=== PATIENT | male | born 1990 | race Caucasian/White ===

== ENCOUNTER 2018-11-18 19:38 | Emergency (ER) | payer SELFPAY ==
[2018-11-18 20:03] VITALS: BP 156/97
--- NOTE | 2018-11-18 20:06 | Emergency Department Report ---
Blank Doc - Documentation Documentation: This is a 27-year-old male that presents with depression. Patient stated feels like he is not himself. Father is present. Denies any SI/HI. Stated feels like his hopeless. Patient is a poor historian during interview and exam. This initial assessment diagnostic orders/clinical plan/treatment(s) is/are subject to change based on patient's health status, clinical progression and re- assessment by fellow clinical providers in the ED. Further treatment and workup at subsequent clinical providers discretion. Patient/guardians urged not to elope from ED s their condition may be serious if not clinically assessed and managed. Initial orders include: 1-Patient sent to Main for further evaluation and treatment 2-Labs 3- UA
--- NOTE | 2018-11-18 20:49 | Emergency Department Report ---
HPI - General Chief Complaint: Psych Time Seen by Provider: 11/18/18 19:55 - HPI HPI: 27-year-old male presents to the emergency department, his father at bedside, with the need for a medical and psychiatric evaluation. Over the past 3 days the patient has not been eating much, drinking much, or doing anything other than hanging out in his room. The patient is not in school and does not currently have a job. He also has not been talking much and family says that this is all abnormal for him. He has no past medical or psychiatric history. He denies any suicidal or homicidal ideations or any hallucinations. He says that he is just not been hungry. He says that he occasionally will drink some water. Throughout the day he will play a little bit of video games but otherwise he says that he is just doing "whatever." ED Past Medical Hx - Past Medical History Previous Medical History?: No - Surgical History Past Surgical History?: No - Social History Smoking Status: Never Smoker Substance Use Type: None ED Review of Systems ROS: Stated complaint: CHECK UP Other details as noted in HPI Comment: All other systems reviewed and negative Constitutional: denies: chills, fever Eyes: denies: eye pain, vision change ENT: denies: ear pain, throat pain Respiratory: denies: cough, shortness of breath Cardiovascular: denies: chest pain, palpitations Gastrointestinal: denies: abdominal pain, vomiting Genitourinary: denies: dysuria, discharge Musculoskeletal: denies: back pain, arthralgia Skin: denies: rash, lesions Neurological: denies: headache, weakness Psychiatric: depression. denies: auditory hallucinations, visual karis lucinations, homicidal thoughts, suicidal thoughts Physical Exam - Physical Exam Vital Signs: Vital Signs 11/18/18 19:57 Temperature 98.1 F Pulse Rate 107 H Respiratory 20 Rate Blood Pressure 156/97 O2 Sat by Pulse 98 Oximetry Physical Exam: GENERAL: The patient is well-developed well-nourished. HEENT: Normocephalic. Atraumatic. Patient has moist mucous membranes. EYES: Extraocular motions are intact. Pupils are equal and reactive to light bilaterally. NECK: Supple. Trachea is midline. CHEST/LUNGS: Clear to auscultation. There is no respiratory distress noted. HEART/CARDIOVASCULAR: Regular. There is no tachycardia. There is no obvious murmur. ABDOMEN: Abdomen is soft, nontender. Patient has normal bowel sounds. Obese habitus. SKIN: Skin is warm and dry. NEURO: The patient is awake, alert, and oriented. The patient is cooperative. The patient has no focal neurologic deficits. The patient has normal speech. MUSCULOSKELETAL: There is no tenderness or deformity. There is no limitation range of motion. There is no evidence of acute injury. PSYCH: Patient has a flat affect. ED Course Vital Signs 11/18/18 19:57 Temperature 98.1 F Pulse Rate 107 H Respiratory 20 Rate Blood Pressure 156/97 O2 Sat by Pulse 98 Oximetry ED Medical Decision Making - Lab Data Result diagrams: 11/18/18 20:17 11/18/18 20:17 - Medical Decision Making Patient presents to the emergency department with a few days of decreased eating and drinking, and decreased talking and/or interaction with his family. The patient is awake, alert, oriented and able to have a conversation but only answers with a few words or short answers. Patient denies any suicidal or homicidal ideations or any hallucinations. He does not appear to be responding to any type of internal stimuli. Patient was seen by the psychiatric converter supervisor, Katherine, who agrees that the patient does not appear to meet criteria to be made a 1013 or to necessitate inpatient involuntary psychiatric treatment. Patient has been given outpatient referrals for psychiatric treatment and/or counseling. Patient's labs have been mostly unremarkable. Vital signs stable throughout his ED course. The patient and his father understand and agree to the plan. - Differential Diagnosis depression, mood disorder, bipolar disorder, schizoaffective Critical Care Time: No Critical care attestation.: If time is entered above; I have spent that time in minutes in the direct care of this critically ill patient, excluding procedure time. ED Disposition Clinical Impression: Depression Qualifiers: Depression Type: unspecified Qualified Code(s): F32.9 - Major depressive disord er, single episode, unspecified Disposition: DC-01 TO HOME OR SELFCARE Is pt being admited?: No Condition: Stable Instructions: Depression (ED) Additional Instructions: Please follow up with one of the psychiatric referrals that she will given, or any psychiatrist/psychologist that he chews. Return to the emergency Department with any worsening of your symptoms, thoughts of harming yourself or others, or with any acute distress. Increase your oral rehydration of fluids. Referrals: [facility] [Outside] - [facility] [Outside] - [facility] Time of Disposition: 23:32
[2018-11-18 20:52] LABS: Basophils % (Auto) 0.2 % (0.0-1.8); Eosinophils % (Auto) 0.2 % (0.0-4.3); Hematocrit 52.1 % (35.5-45.6); Hemoglobin 17.7 gm/dl (11.8-15.2); Lymphocytes # (Auto) 2.2 K/mm3 (1.2-5.4); Lymphocytes % (Auto) 16.2 % (13.4-35.0); Mean Corpuscular HGB Conc 34 % (32-34); Mean Corpuscular Volume 89 fl (84-94); Monocytes % (Auto) 7.2 % (0.0-7.3); Platelet Count 240 K/mm3 (140-440); Red Blood Count 5.89 M/mm3 (3.65-5.03); Red Cell Distribution Width 13.5 % (13.2-15.2)
[2018-11-18 21:14] LABS: Bilirubin,Urine NEG (Negative); Blood,Urine NEG (Negative); Color,Urine Yellow (Yellow); Mucus,Urine 3+ /HPF; Protein,Urine <15 mg/dL mg/dL (Negative); WBC,Urine < 1.0 /HPF (0.0-6.0)
[2018-11-18 21:18] LABS: Alanine Aminotransferase 36 units/L (7-56); Albumin 4.4 g/dL (3.9-5); BUN/Creatinine Ratio 11; Blood Urea Nitrogen 8 mg/dL (9-20); Calcium 9.5 mg/dL (8.4-10.2); Hemolysis Index 13
[2018-11-18 21:26] LABS: Amphetamine Screen,Urine PRESUMPTIVE NEGATIVE; Benzodiazepines Screen,Urine PRESUMPTIVE NEGATIVE; Cocaine Screen,Urine PRESUMPTIVE NEGATIVE; Methadone Screen,Urine PRESUMPTIVE NEGATIVE; Opiate Screen,Urine PRESUMPTIVE NEGATIVE
[2018-11-18 21:40] LABS: Cannabinoid Screen,Urine PRESUMPTIVE POSITIVE
== END 2018-11-18 23:08 | disposition home or self-care (01) ==
LOC: ED 19:38
DX: F32.9 Major depressive disorder, single episode, unspecified (principal)
CPT/HCPCS: 36415; 80053; 80307; 81001; 84443; 85025; 99284; G0480; 80320